=== PATIENT | male | born 1975 | race African-American/Black ===

== ENCOUNTER 2016-10-08 18:26 | Emergency (ER) | payer OTHER ==
[~2016-10-08] VITALS: Ht 185.4 cm; Wt 87.0 kg
[2016-10-08] MEDS ORDERED: HYDROCHLOROT12.5 MG PO (18:53)
[2016-10-08] MEDS ORDERED: LISINOPRIL20 MG PO (18:53)
[2016-10-08] MEDS ORDERED: AMLODIPINE5 MG PO (18:53)
[2016-10-08 19:25] VITALS: BP 161/84
== END 2016-10-08 19:29 | disposition home or self-care (01) | DRG 951 ==
LOC: ED 18:26
DX: Z20.818 Contact with and (suspected) exposure to other bacterial communicable diseases (principal)

== ENCOUNTER → 2018-04-09 | Outpatient (REF) ==
[~2018-04-09] MED LIST: AMLODIPINE5 MG PO; HYDROCHLOROT12.5 MG PO; LISINOPRIL20 MG PO
[2018-04-09 09:03] LABS: CHOLESTEROL HDL RATIO 3.1 (<4.4 (CALC))
== END | disposition home or self-care (01) | DRG 951 ==
LOC: LAB 07:01
PROVIDERS: ATTEND Family Medicine
DX: Z02.6 Encounter for examination for insurance purposes (principal)

== ENCOUNTER 2020-02-12 05:36 | Emergency (ER) | payer OTHER ==
[~2020-02-12] VITALS: Ht 182.9 cm; Wt 91.0 kg
[~2020-02-12 05:36] MED LIST changes: -AMLODIPINE5 MG PO; +NORVASC5 M1 PO
[2020-02-12 07:28] VITALS: BP 154/90
== END 2020-02-12 07:05 | disposition home or self-care (01) | DRG 605 ==
LOC: ED 05:36
DX: S61.231A Puncture wound without foreign body of left index finger without damage to nail, initial encounter (principal); W46.1XXA Contact with contaminated hypodermic needle, initial encounter; Y93.F9 Activity, other caregiving; Y92.230 Patient room in hospital as the place of occurrence of the external cause; Y99.0 Civilian activity done for income or pay